=== PATIENT | female | born 1990 | race African-American/Black ===

== ENCOUNTER 2017-10-06 17:08 | Emergency (ER) | payer OTHER ==
[~2017-10-06] VITALS: Ht 167.6 cm; Wt 81.6 kg
== END 2017-10-06 20:15 | disposition home or self-care (01) ==
LOC: ER 17:08
DX: S83.512A Sprain of anterior cruciate ligament of left knee, initial encounter (principal); X50.0XXA Overexertion from strenuous movement or load, initial encounter; Y93.02 Activity, running; Y92.89 Other specified places as the place of occurrence of the external cause; Y99.8 Other external cause status